=== PATIENT | female | born 1980 | race African-American/Black ===

== ENCOUNTER 2020-07-30 06:00 | Inpatient (IN) ==
[2020-07-30] MEDS ORDERED: Famotidine 20 MG/2 ML VIAL IVP PRN (06:28)
[2020-07-30] MEDS ORDERED: Metoclopramide 10 MG/2 ML VIAL IVP PRN (06:28)
[2020-07-30] MEDS ORDERED: *HR* FentaNYL (PF) 100 MCG/2 ML VIAL IVP PRN (06:28)
[2020-07-30] MEDS ORDERED: Naloxone 0.4 MG/ML INJ IVP PRN (06:28)
[2020-07-30] MEDS ORDERED: Ondansetron 4 MG/2 ML VIAL IVP PRN (06:28)
[2020-07-30] MEDS ORDERED: Azithromycin 500 MG in 0.9 % Sodium Chloride 250 ML IVPB ONE (06:28)
[2020-07-30] MEDS ORDERED: Ringers Solution, Lactated 1,000 ML IVC SCH (06:30)
[2020-07-30] MEDS ORDERED: miSOPROStoL 25 MCG TABLET PO PRN (06:33)
[2020-07-30] MEDS ORDERED: Penicillin G Potassium 5,000,000 UNIT in 0.9 % Sodium Chloride Mini Bag 100 ML IVPB ONE (06:34)
[2020-07-30] MEDS ORDERED: Oxytocin 20 units/ LR 1000 mL 20 UNIT/1,000 ML BAG IVC SCH (06:45)
[2020-07-30 06:49] LABS: Basophils % 0.2 %; Eosinophils # 0.1 K/mcL (0.0-0.6); Eosinophils % 1.3 %; Hematocrit 37.3 % (35.3-44.9); Hemoglobin 11.6 g/dL (11.5-15.4); Immature Granulocytes % 0.4 % (0-4); Lymphocytes # 2.6 K/mcL (0.6-4.6); Lymphocytes % 27.2 %; Mean Corpuscular HGB Conc 31.1 g/dL (31.6-35.5); Mean Corpuscular Volume 86.9 fL (83.0-100.0); Mean Platelet Volume 10.4 fL (9.4-12.4); Monocytes # 0.5 K/mcL (0.0-1.3); Monocytes % 5.4 %; Neutrophils # 6.2 K/mcL (1.6-8.9); Platelet Count 233 K/mcL (140-400); Red Blood Count 4.29 M/mcL (3.82-4.97); Red Cell Distribution Width 14.4 % (11.5-14.5); Segmented Neutrophils % 65.5 %; White Blood Count 9.4 K/mcL (4.3-11.1)
[2020-07-30] MEDS ORDERED: EPHEDrine 50 MG/ML VIAL IVP PRN (07:25)
[2020-07-30] MEDS ORDERED: *HR* FentaNYL (PF) 100 MCG/2 ML VIAL EP ONE (07:25)
[2020-07-30] MEDS ORDERED: Ropivacaine/PF 0.2% 20 ML VIAL EP ONE (07:25)
[2020-07-30] MEDS ORDERED: Epidural Premix (fent/bupiv) 110 ML EP SCH (07:30)
[2020-07-30] MEDS ORDERED: Ropivacaine/PF 0.2% 20 ML VIAL ONE (08:03)
[2020-07-30] MEDS ORDERED: *HR* FentaNYL (PF) 100 MCG/2 ML VIAL ONE ×2 (08:03→18:42)
[2020-07-30 08:27] LABS: Amphetamine Screen,Urine Negative ng/mL (Cutoff=1000); Barbiturate Screen,Urine Negative ng/mL (Cutoff=200); Benzodiazepines Screen,Urine Negative ng/mL (Cutoff=200); Cannabinoid Screen,Urine Negative ng/mL (Cutoff = 50); Cocaine Screen,Urine Negative ng/mL (Cutoff= 300); Opiate Screen,Urine Negative ng/mL (Cutoff=300); Phencyclidine Screen,Urine Negative ng/mL (Cutoff=25)
[2020-07-30] MEDS: Penicillin G Potassium 2,500,000 UNIT/105 ML MLS IVPB SCH ×2 (11:04→15:01)
[2020-07-30] MEDS ORDERED: Terbutaline 1 MG/ML VIAL SQ ONE (18:29)
[2020-07-31] MEDS ORDERED: Benzocaine/Menthol 56 GM AEROSOL SPRAY TP PRN (07:29)
[2020-07-31] MEDS ORDERED: Acetaminophen 325 MG TABLET PO PRN (07:29)
[2020-07-31] MEDS ORDERED: Oxytocin 20 units/ LR 1000 mL 20 UNIT/1,000 ML BAG IVC ONE (07:29)
[2020-07-31] MEDS ORDERED: Lanolin 7 G OINT...G. TP PRN (07:29)
[2020-07-31] MEDS ORDERED: Ibuprofen 600 MG TABLET PO PRN (07:29)
[2020-07-31] MEDS ORDERED: Oxytocin 20 units/ LR 1000 mL 20 UNIT/1,000 ML BAG IVC SCH (07:30)
[2020-07-31] MEDS ORDERED: Prenatal Vit/FA 1 EACH TABLET PO SCH (09:00)
[2020-07-31 16:03] VITALS: BP 118/76
== END 2020-07-31 19:50 | disposition home or self-care (01) | DRG 560 ==
LOC: 1NENULAB 06:05 → 1NENUOBS 22:16
PROVIDERS: ADMIT Student in an Organized Health Care Education/Training Program; ATTEND Student in an Organized Health Care Education/Training Program